=== PATIENT | female | born 1975 | race Caucasian/White ===

== ENCOUNTER → 2024-06-08 13:38 | Outpatient (REF) | payer OTHER, SELFPAY | LOC: HWRAD 13:38 | PROVIDERS: ATTENDING PHYSICIAN Obstetrics & Gynecology; FAMILY PHYSICIAN Internal Medicine | DX: N95.0 Postmenopausal bleeding (principal) | CPT/HCPCS: 76830; 76856 ==

== ENCOUNTER → 2024-07-04 14:54 | Outpatient (REF) | payer OTHER, SELFPAY | LOC: RAD 14:54 | PROVIDERS: ATTENDING PHYSICIAN Ophthalmology; FAMILY PHYSICIAN Internal Medicine | DX: H20.023 Recurrent acute iridocyclitis, bilateral (principal) | CPT/HCPCS: 71046 ==

== ENCOUNTER 2024-10-11 06:16 | Day surgery (SDC) | payer OTHER, SELFPAY ==
[2024-10-06 10:46] VITALS: BMI 24.7
[2024-10-06 11:06] LABS: % Basophils 0.4 % (0-2); % Eosinophils 4.6 % (0-6); % Immature Granulocytes 0.3 % (0-0.5); % Lymphocytes 20.1 % (20.5-51.1); % Monocytes 8.2 % (1.7-9.3); % Neutrophils 66.4 % (42.2-75.2); Absolute Eosinophils 0.3 10^3/uL (0-0.7); Absolute Lymphocytes 1.4 10^3/uL (1.2-3.4); Absolute Monocytes 0.6 10^3/uL (0.1-0.6); Absolute Neutrophils 4.5 10^3/uL (1.4-6.5); Hematocrit 40.8 % (37.0-47.0); Hemoglobin 14.5 g/dL (12.0-16.0); Mean Corp Hgb Conc. 35.5 g/dL (33.0-37.0); Mean Corpuscular Volume 90.1 fL (81.0-99.0); Mean Platelet Volume 9.7 fL (7.4-10.4); Nucleated Red Blood Cells % 0 %; Platelet Count 226 10^3/uL (130-400); Red Blood Cell Count 4.53 10^6/uL (4.20-5.40); Red Cell Dist. Width 11.9 % (11.5-14.5); White Blood Cell Count 6.7 10^3/uL (4.8-10.8)
[2024-10-06 11:34] LABS: Blood Urea Nitrogen 11 mg/dl (7-17); Calcium 9.3 mg/dl (8.4-10.2); Carbon Dioxide 26 mmol/L (22-30); Chloride 104 mmol/L (98-107); Estimated Creatinine Clearance 100 ml/min; Glucose 75 mg/dl (70-99); Potassium 5.3 mmol/L (3.5-5.1); Sodium 139 mmol/L (135-145); eGFR > 60.00
[2024-10-11] VITALS (7 sets, daily range): BP systolic 107–119; BP diastolic 55–86; BMI 24.7
[2024-10-11] MEDS: TYLENOL 1000 MG PO (06:53)
--- NOTE | 2024-10-11 09:43 | PTCARENOTE ---
Awaiting Dr. Corbett to see patient prior to discharge. Verified by [place] text that MD wants to see patient. Will monitor patient.
== END 2024-10-11 10:54 | disposition home or self-care (01) ==
LOC: SDS 06:16
PROVIDERS: ATTENDING PHYSICIAN Obstetrics & Gynecology; FAMILY PHYSICIAN Internal Medicine
DX: N87.9 Dysplasia of cervix uteri, unspecified (principal); N95.0 Postmenopausal bleeding; Z79.890 Hormone replacement therapy
CPT/HCPCS: 58558; 88305; 36415; 80048; 85025; 86850; 86900; 86901

== ENCOUNTER → 2024-10-12 10:01 | Outpatient (REF) | payer OTHER, SELFPAY ==
--- NOTE | 2024-10-11 08:03 | W.IMMPOSTOP ---
Surgical Immed Post Op Note
-
Primary Surgeon: Marva Sood DO
Assisting Surgeon: none
Pre-op Diagnosis: Postmenopausal bleeding on HRT
Post-op Diagnosis: same
Procedure Performed: Hysteroscopy D&C
Anesthesia Type: general LMA Dr. Li
Specimen / Cultures: 1. endocervical curettings 2. endometrial curettings
Estimated Blood Loss: 2ml
Complications: none
Operative Findings: Endometrium relatively thin, some minor tissue proliferation noted posterior aspect endometrium but no polyp or mass. Bilateral tubal ostia seen.
Counts correct times 2.
stable to recovery.
--- NOTE | 2024-10-11 10:40 | W.PN.UPDATE ---
Update Note
Progress Note Update
Reviewed operative findings with pt in PACU.
D/C instructions reviewed.
== END ==
LOC: HWWDC 10:01
PROVIDERS: ATTENDING PHYSICIAN Obstetrics & Gynecology; FAMILY PHYSICIAN Internal Medicine
DX: Z12.31 Encounter for screening mammogram for malignant neoplasm of breast (principal)
CPT/HCPCS: 77063; 77067

== ENCOUNTER → 2024-10-20 09:30 | Outpatient (REF) | payer OTHER, SELFPAY | LOC: HWRAD 09:30 | PROVIDERS: ATTENDING PHYSICIAN Nurse Practitioner Family; FAMILY PHYSICIAN Internal Medicine | DX: R10.84 Generalized abdominal pain (principal) | CPT/HCPCS: 76700 ==

== ENCOUNTER 2025-04-05 06:25 | Day surgery (SDC) | payer OTHER, SELFPAY | END 2025-04-05 11:46 | disposition home or self-care (01) | LOC: GI 06:25 | PROVIDERS: ATTENDING PHYSICIAN Internal Medicine Gastroenterology | DX: Z12.11 Encounter for screening for malignant neoplasm of colon (principal); D12.0 Benign neoplasm of cecum; D12.4 Benign neoplasm of descending colon; K57.30 Diverticulosis of large intestine without perforation or abscess without bleeding; K62.89 Other specified diseases of anus and rectum; K62.1 Rectal polyp; Z86.0101 Personal history of adenomatous and serrated colon polyps | CPT/HCPCS: 45380; 88305 ==

== ENCOUNTER → 2025-05-11 08:14 | Outpatient (REF) | payer OTHER, SELFPAY | LOC: RAD 08:14 | PROVIDERS: ATTENDING PHYSICIAN Internal Medicine | DX: Z13.820 Encounter for screening for osteoporosis (principal) | CPT/HCPCS: 77080 ==

== ENCOUNTER → 2025-09-21 08:46 | Outpatient (REF) | payer OTHER, SELFPAY | LOC: RAD 08:46 | PROVIDERS: ATTENDING PHYSICIAN Obstetrics & Gynecology; FAMILY PHYSICIAN Internal Medicine | DX: Z12.31 Encounter for screening mammogram for malignant neoplasm of breast (principal); R05.9 Cough, unspecified | CPT/HCPCS: 71046 ==